=== PATIENT | female | born 1940 | race Caucasian/White ===

== ENCOUNTER 2018-12-01 14:39 | Emergency (ER) | payer OTHER, MEDICAID ==
[~2018-12-01] VITALS: Ht 160 cm; Wt 50.0 kg
[2018-12-01] MEDS ORDERED: SODIUM CHLORIDE 0.9% 1,000 ML IV ONE (14:57)
[2018-12-01] MEDS ORDERED: ACETAMINOPHEN 650MG SUPP PR STA (14:57)
[2018-12-01] MEDS ORDERED: PIPERACILLIN/TAZ 3.375G PREMIX 50 ML IV ONE (15:00)
[2018-12-01] MEDS ORDERED: VANCOMYCIN 1 G PREMIX 200 ML IV ONE (15:00)
[2018-12-01 15:21] LABS: BG BASE EXCESS -2.6 mmol/L (-2.0-2.0); BG CARBOXYHEMOGLOBIN 0.3 % (0.5-1.5); BG DEOXYHEMOGLOBIN 8.8 % (0.0-5.0); BG OXYGEN SATURATION 91.2 % (92.0-98.5); BG OXYHEMOGLOBIN 90.9 % (94.0-97.0); BG PCO2 27.9 mmHg (35.0-45.0); BG PH 7.474 (7.350-7.450); BG PO2 58.3 mmHg (75.0-100.0); BG SAMPLE SITE LEFT RADIAL; BG TOTAL HEMOGLOBIN 10.6 g/dL (12.0-18.0); BG VENT MODE ROOM AIR
[2018-12-01 16:37] LABS: BASOPHILS % 0.3 % (0.0-2.0); EOSINOPHILS % 0.1 % (0.0-5.0); HEMATOCRIT. 28.9 % (36.0-48.0); HEMOGLOBIN. 9.8 g/dL (12.0-16.0); LYMPHOCYTES % 8.1 % (20.0-50.0); MEAN CORPUSCULAR HEMOGLOBIN 31.7 pg (28.0-32.0); MONOCYTES % 1.7 % (2.0-8.0); NEUTROPHILS % 89.8 % (40.0-76.0); PLATELET 196 x1000/uL (130-400)
[2018-12-01 16:41] LABS: CLARITY URINE CLEAR (CLEAR); COLOR URINE YELLOW (YELLOW); KETONES URINE NEGATIVE (NEGATIVE); LEUKOCYTE ESTERASE URINE NEGATIVE (NEGATIVE); NITRITE URINE NEGATIVE (NEGATIVE); OCCULT BLOOD URINE NEGATIVE (NEGATIVE); PH URINE 6.5 (4.5-8.0); PROTEIN URINE NEGATIVE (NEGATIVE); SPECIFIC GRAVITY URINE 1.014 (1.005-1.030); UROBILINOGEN URINE 0.2 E.U./dL (0.2-1.0)
[2018-12-01 16:49] LABS: CHLORIDE 102 mEq/L (98-107)
[2018-12-01 16:57] LABS: CREATINE KINASE 119 IU/L (26-192)
[2018-12-01 16:58] LABS: INR 1.1
[2018-12-01 21:53] VITALS: BP 96/55
== END 2018-12-01 21:54 | disposition short-term general hospital (02) ==
LOC: ER 14:39 → CANBEDREQ 17:48 → ER 21:54
DX: J84.9 Interstitial pulmonary disease, unspecified (principal); R50.9 Fever, unspecified; R53.1 Weakness; E11.9 Type 2 diabetes mellitus without complications
CPT/HCPCS: 36415; 36600; 51702; 70450; 71045; 80053; 81003; 82375; 82550; 82805; 82962; 83605; 84145; 84484; 85025; 85610; 87040; 87086; 87804; 93005; 96365; 96366; 96368; 99285; J2543; J3370; J7030

== ENCOUNTER 2019-01-22 15:13 | Emergency (ER) | payer OTHER, MEDICAID ==
[~2019-01-22] VITALS: Ht 149.9 cm; Wt 50.0 kg
[2019-01-22 15:15] VITALS: BP 160/133
== END 2019-01-22 18:07 | disposition left against medical advice (07) ==
LOC: ER 15:35
DX: Z53.21 Procedure and treatment not carried out due to patient leaving prior to being seen by health care provider (principal)